=== PATIENT | male | born 1955 | race Caucasian/White ===

== ENCOUNTER 2020-11-27 21:43 | Emergency (ER) | payer MEDICARE, SELFPAY ==
[2020-11-27 22:33] LABS: #Basophils 0.1 10x3/uL (0.0-0.2); #Eosinphils 0.2 10x3/uL (0.0-0.5); #Monocytes 0.7 10x3/uL (0.0-1.1); #Neutrophils 4.5 10x3/uL (1.5-8.4); %Eosinophils 3.2 % (0.0-6.0); %Lymphocytes 20.2 % (18.0-47.0); %Monocytes 9.5 % (0.0-10.0); Hemoglobin 10.5 g/dL (13.5-17.5); Mean Corpuscular HGB CONC 30.8 g/dL (32.0-36.0); Mean Corpuscular Hemoglobin 28.5 pg (27.0-33.0); Mean Corpuscular Volume 92.7 fl (81.2-95.1); Mean Platelet Volume 11.3 fl (7.4-10.4); Platelet Count 177 10x3/uL (150-450); RBC Distribution Width 16.1 % (11.5-14.5); Red Blood Cell (RBC) Count 3.68 10x6/uL (4.32-5.72); White Blood Cell (WBC) Count 6.8 10x3/uL (3.5-10.5)
[2020-11-27 22:48] LABS: ALT (SGPT) 7 U/L (8-55); AST (SGOT) 32 U/L (5-34); Albumin 4.4 g/dL (3.4-4.8); Alkaline Phosphatase 95 U/L (40-110); Anion Gap 17 mmol/L (10-20); BUN (Urea Nitrogen) 26 mg/dL (8.4-25.7); Calc. Creatinine Clearance 0 mL/min (70-130); Carbon Dioxide 27 mmol/L (23-31); Chloride 100 mmol/L (98-107); Globulin 3.1 g/dL (2.4-3.5); Glucose 121 mg/dL (80-115); Potassium 4.2 mmol/L (3.5-5.1); Protein, Total 7.5 g/dL (5.8-8.1); Sodium 140 mmol/L (136-145)
== END 2020-11-28 00:23 | disposition home or self-care (01) ==
LOC: CSHERS 21:43
DX: R06.00 Dyspnea, unspecified (principal); I11.0 Hypertensive heart disease with heart failure; I50.9 Heart failure, unspecified; E11.9 Type 2 diabetes mellitus without complications; I25.10 Atherosclerotic heart disease of native coronary artery without angina pectoris; Z79.01 Long term (current) use of anticoagulants; Z79.4 Long term (current) use of insulin; Z79.899 Other long term (current) drug therapy
CPT/HCPCS: 71045; 80053; 83880; 84484; 85025; 93005

== ENCOUNTER 2020-12-05 15:18 | Inpatient (IN) | payer MEDICARE ==
[2020-12-05 15:45] LABS: #Basophils 0.1 10x3/uL (0.0-0.2); #Eosinphils 0.2 10x3/uL (0.0-0.5); #Monocytes 0.5 10x3/uL (0.0-1.1); #Neutrophils 3.5 10x3/uL (1.5-8.4); %Basophils 0.9 % (0.0-2.0); %Eosinophils 3.7 % (0.0-6.0); %Lymphocytes 22.2 % (18.0-47.0); %Monocytes 9.5 % (0.0-10.0); %Neutrophils 63.3 % (40.0-75.0); Hemoglobin 9.5 g/dL (13.5-17.5); Mean Corpuscular HGB CONC 30.3 g/dL (32.0-36.0); Mean Corpuscular Hemoglobin 28.2 pg (27.0-33.0); Mean Corpuscular Volume 93.2 fl (81.2-95.1); Mean Platelet Volume 11.6 fl (7.4-10.4); Platelet Count 174 10x3/uL (150-450); RBC Distribution Width 16.4 % (11.5-14.5); Red Blood Cell (RBC) Count 3.37 10x6/uL (4.32-5.72); White Blood Cell (WBC) Count 5.5 10x3/uL (3.5-10.5)
[2020-12-05 15:57] LABS: ALT (SGPT) 7 U/L (8-55); AST (SGOT) 18 U/L (5-34); Albumin 4.1 g/dL (3.4-4.8); Alkaline Phosphatase 86 U/L (40-110); Anion Gap 14 mmol/L (10-20); BUN (Urea Nitrogen) 26 mg/dL (8.4-25.7); Bilirubin, Total 0.9 mg/dL (0.2-1.2); Calc. Creatinine Clearance 0 mL/min (70-130); Calcium 8.8 mg/dL (7.8-10.44); Carbon Dioxide 31 mmol/L (23-31); Chloride 103 mmol/L (98-107); Glucose 92 mg/dL (80-115); Potassium 4.3 mmol/L (3.5-5.1); Protein, Total 7.1 g/dL (5.8-8.1); Sodium 144 mmol/L (136-145)
[2020-12-05 16:03] LABS: INR-International Normal Ratio 2.4; PTT 33.7 sec (22.0-33.0); Prothrombin Time 25.8 sec (9.5-12.1)
[2020-12-05 16:18] LABS: CKMB 1.7 ng/mL (0-6.6)
[2020-12-05] MEDS ORDERED: Furosemide 40 MG/4 ML VIAL ONE (16:59)
[2020-12-05] MEDS ORDERED: Ondansetron PF 4 MG/2 ML Vial IVP PRN (17:28)
[2020-12-05] MEDS ORDERED: HYDROcodone/Acetaminophen 5/325 mg Tablet PO PRN (17:28)
[2020-12-05] MEDS ORDERED: Bisacodyl 5 MG TAB PO PRN (17:28)
[2020-12-05] MEDS ORDERED: Acetaminophen 325 MG TAB PO PRN (17:28)
[2020-12-05] MEDS ORDERED: Calcium Carbonate 500 MG ChewTAB PO PRN (17:28)
[2020-12-05] MEDS ORDERED: Warfarin Sodium 5 MG TAB PO SCH (23:59)
[2020-12-06 06:16] LABS: Anion Gap 15 mmol/L (10-20); BUN (Urea Nitrogen) 26 mg/dL (8.4-25.7); Calc. Creatinine Clearance 67 mL/min (70-130); Calcium 9.1 mg/dL (7.8-10.44); Carbon Dioxide 31 mmol/L (23-31); Chloride 103 mmol/L (98-107); Glucose 135 mg/dL (80-115); Magnesium 2.1 mg/dL (1.6-2.6); Potassium 4.5 mmol/L (3.5-5.1); Sodium 144 mmol/L (136-145)
[2020-12-06 06:51] LABS: INR-International Normal Ratio 2.3; Prothrombin Time 24.2 sec (9.5-12.1)
[2020-12-06] MEDS: Furosemide 40 MG/4 ML VIAL SLOW IVP SCH ×2 (06:54→12:43)
[2020-12-06 07:30] LABS: #Basophils 0.1 10x3/uL (0.0-0.2); #Eosinphils 0.2 10x3/uL (0.0-0.5); #Monocytes 0.6 10x3/uL (0.0-1.1); #Neutrophils 4.8 10x3/uL (1.5-8.4); %Basophils 1.2 % (0.0-2.0); %Eosinophils 2.6 % (0.0-6.0); %Lymphocytes 17.4 % (18.0-47.0); %Monocytes 8.9 % (0.0-10.0); %Neutrophils 69.8 % (40.0-75.0); Hemoglobin 9.6 g/dL (13.5-17.5); Mean Corpuscular HGB CONC 30.5 g/dL (32.0-36.0); Mean Corpuscular Hemoglobin 28.9 pg (27.0-33.0); Mean Corpuscular Volume 94.9 fl (81.2-95.1); Mean Platelet Volume 12.3 fl (7.4-10.4); Platelet Count 179 10x3/uL (150-450); RBC Distribution Width 16.2 % (11.5-14.5); Red Blood Cell (RBC) Count 3.32 10x6/uL (4.32-5.72); White Blood Cell (WBC) Count 6.8 10x3/uL (3.5-10.5)
[2020-12-06] MEDS ORDERED: Enoxaparin Sodium 40 MG/0.4 ML SYRINGE SC SCH (09:00)
[2020-12-06] MEDS ORDERED: Gabapentin 300 MG CAP PO PRN (15:00)
[2020-12-06] MEDS ORDERED: Furosemide 100 MG/10 ML VIAL SLOW IVP SCH (15:45)
[2020-12-06 15:55] LABS: SARS-CoV-2 PCR by NAA Not Detected (NotDetected)
[2020-12-06] MEDS ORDERED: Carvedilol 6.25 MG TAB PO SCH ×2 (17:00→21:00)
[2020-12-06] MEDS: Potassium Chloride 20 MEQ TAB PO SCH (19:04)
[2020-12-06] MEDS: Carvedilol 12.5 MG TAB PO SCH (19:04)
[2020-12-07] MEDS: Furosemide 100 MG/10 ML VIAL SLOW IVP SCH ×2 (05:57→14:26)
[2020-12-07 07:00] LABS: Anion Gap 16 mmol/L (10-20); BUN (Urea Nitrogen) 24 mg/dL (8.4-25.7); Calc. Creatinine Clearance 74 mL/min (70-130); Calcium 9.3 mg/dL (7.8-10.44); Carbon Dioxide 31 mmol/L (23-31); Chloride 101 mmol/L (98-107); Glucose 135 mg/dL (80-115); Potassium 4.6 mmol/L (3.5-5.1); Sodium 143 mmol/L (136-145)
[2020-12-07 07:05] LABS: Prothrombin Time 21.8 sec (9.5-12.1)
[2020-12-07] MEDS ORDERED: Potassium Chloride 20 MEQ TAB PO SCH (08:00)
[2020-12-07] MEDS: Carvedilol 12.5 MG TAB PO SCH ×2 (11:23→18:10)
[2020-12-07] MEDS: Atorvastatin Calcium 40 MG TAB PO SCH (11:24)
[2020-12-07] MEDS: Potassium Chloride 20 MEQ TAB PO SCH ×2 (11:24→18:09)
[2020-12-07] MEDS: Spironolactone 25 MG TAB PO SCH (11:24)
[2020-12-07] MEDS: Losartan Potassium 50 MG TAB PO SCH (11:24)
[2020-12-07] MEDS: Warfarin Sodium 5 MG TAB PO SCH (18:10)
[2020-12-08] MEDS: Furosemide 100 MG/10 ML VIAL SLOW IVP SCH (06:27)
[2020-12-08 06:32] LABS: INR-International Normal Ratio 1.7; Prothrombin Time 18.8 sec (9.5-12.1)
[2020-12-08 06:39] LABS: Anion Gap 15 mmol/L (10-20); BUN (Urea Nitrogen) 24 mg/dL (8.4-25.7); Calc. Creatinine Clearance 77 mL/min (70-130); Carbon Dioxide 32 mmol/L (23-31); Chloride 101 mmol/L (98-107); Glucose 118 mg/dL (80-115); Potassium 4.2 mmol/L (3.5-5.1); Sodium 144 mmol/L (136-145)
[2020-12-08] MEDS: Carvedilol 12.5 MG TAB PO SCH ×2 (08:38→17:10)
[2020-12-08] MEDS: Losartan Potassium 50 MG TAB PO SCH (08:43)
[2020-12-08] MEDS: Potassium Chloride 20 MEQ TAB PO SCH ×2 (08:44→17:10)
[2020-12-08] MEDS: Spironolactone 25 MG TAB PO SCH (08:44)
[2020-12-08] MEDS: Atorvastatin Calcium 40 MG TAB PO SCH (08:44)
[2020-12-08] MEDS: Furosemide 40 MG TAB PO SCH (14:58)
[2020-12-08] MEDS: Warfarin Sodium 5 MG TAB PO SCH (17:10)
[2020-12-08] MEDS: Albuterol Sulfate 2.5 mg/3 ml Neb NEB PRN (21:45)
[2020-12-09] MEDS: Albuterol Sulfate 2.5 mg/3 ml Neb NEB PRN (03:10)
[2020-12-09 05:19] LABS: #Basophils 0.1 10x3/uL (0.0-0.2); #Eosinphils 0.2 10x3/uL (0.0-0.5); #Monocytes 0.5 10x3/uL (0.0-1.1); #Neutrophils 3.4 10x3/uL (1.5-8.4); %Basophils 1.2 % (0.0-2.0); %Eosinophils 3.7 % (0.0-6.0); %Lymphocytes 19.4 % (18.0-47.0); %Neutrophils 65.5 % (40.0-75.0); Mean Corpuscular HGB CONC 30.5 g/dL (32.0-36.0); Mean Corpuscular Hemoglobin 28.8 pg (27.0-33.0); Mean Corpuscular Volume 94.6 fl (81.2-95.1); Mean Platelet Volume 12.1 fl (7.4-10.4); Platelet Count 161 10x3/uL (150-450); RBC Distribution Width 15.8 % (11.5-14.5); Red Blood Cell (RBC) Count 3.12 10x6/uL (4.32-5.72); White Blood Cell (WBC) Count 5.1 10x3/uL (3.5-10.5)
[2020-12-09 05:31] VITALS: BMI 28.3
[2020-12-09 05:31] LABS: INR-International Normal Ratio 1.8; Prothrombin Time 19.6 sec (9.5-12.1)
[2020-12-09 05:36] LABS: Anion Gap 12 mmol/L (10-20); BUN (Urea Nitrogen) 24 mg/dL (8.4-25.7); Calc. Creatinine Clearance 75 mL/min (70-130); Carbon Dioxide 34 mmol/L (23-31); Chloride 99 mmol/L (98-107); Glucose 111 mg/dL (80-115); Potassium 4.1 mmol/L (3.5-5.1); Sodium 141 mmol/L (136-145)
[2020-12-09] MEDS: Furosemide 40 MG TAB PO SCH ×3 (08:54→14:13)
[2020-12-09] MEDS: Carvedilol 12.5 MG TAB PO SCH ×2 (08:54→18:02)
[2020-12-09] MEDS: Potassium Chloride 20 MEQ TAB PO SCH ×2 (08:55→18:01)
[2020-12-09] MEDS: Losartan Potassium 50 MG TAB PO SCH (08:55)
[2020-12-09] MEDS: Atorvastatin Calcium 40 MG TAB PO SCH (08:56)
[2020-12-09] MEDS: Spironolactone 25 MG TAB PO SCH (08:56)
[2020-12-09] MEDS: Warfarin Sodium 5 MG TAB PO SCH (18:02)
[2020-12-09] MEDS ORDERED: Dextrose 5% in Water 1,000 ML IV PRN (18:26)
[2020-12-09] MEDS ORDERED: Dextrose 50% Abboject 50 ML SYRINGE SLOW IVP PRN (18:26)
[2020-12-09] MEDS: HumaLOG 300 UNITS/3 ML VIAL SC PRN (21:08)
[2020-12-10 06:43] LABS: INR-International Normal Ratio 1.9; Prothrombin Time 19.9 sec (9.5-12.1)
[2020-12-10 06:49] LABS: Anion Gap 13 mmol/L (10-20); BUN (Urea Nitrogen) 21 mg/dL (8.4-25.7); Calc. Creatinine Clearance 73 mL/min (70-130); Calcium 9.1 mg/dL (7.8-10.44); Carbon Dioxide 35 mmol/L (23-31); Chloride 101 mmol/L (98-107); Glucose 127 mg/dL (80-115); Potassium 4.5 mmol/L (3.5-5.1); Sodium 144 mmol/L (136-145)
[2020-12-10 07:18] LABS: #Basophils 0.1 10x3/uL (0.0-0.2); #Eosinphils 0.2 10x3/uL (0.0-0.5); #Monocytes 0.6 10x3/uL (0.0-1.1); #Neutrophils 3.3 10x3/uL (1.5-8.4); %Basophils 1.3 % (0.0-2.0); %Lymphocytes 21.3 % (18.0-47.0); %Monocytes 11.1 % (0.0-10.0); %Neutrophils 61.9 % (40.0-75.0); Hemoglobin 9.7 g/dL (13.5-17.5); Mean Corpuscular HGB CONC 30.8 g/dL (32.0-36.0); Mean Corpuscular Hemoglobin 28.8 pg (27.0-33.0); Mean Corpuscular Volume 93.5 fl (81.2-95.1); Mean Platelet Volume 11.7 fl (7.4-10.4); Platelet Count 163 10x3/uL (150-450); RBC Distribution Width 15.9 % (11.5-14.5); Red Blood Cell (RBC) Count 3.37 10x6/uL (4.32-5.72); White Blood Cell (WBC) Count 5.3 10x3/uL (3.5-10.5)
[2020-12-10] MEDS: Furosemide 40 MG TAB PO SCH ×2 (08:21→14:29)
[2020-12-10] MEDS: Losartan Potassium 50 MG TAB PO SCH (08:21)
[2020-12-10] MEDS: Spironolactone 25 MG TAB PO SCH (08:21)
[2020-12-10] MEDS: Carvedilol 12.5 MG TAB PO SCH ×2 (08:21→16:49)
[2020-12-10] MEDS: Potassium Chloride 20 MEQ TAB PO SCH ×2 (08:21→17:06)
[2020-12-10] MEDS: Atorvastatin Calcium 40 MG TAB PO SCH (08:21)
[2020-12-10] MEDS: HumaLOG 300 UNITS/3 ML VIAL SC PRN ×2 (11:49→21:07)
[2020-12-10] MEDS: Warfarin Sodium 5 MG TAB PO SCH (17:05)
[2020-12-11 06:34] LABS: #Basophils 0.1 10x3/uL (0.0-0.2); #Eosinphils 0.2 10x3/uL (0.0-0.5); #Monocytes 0.7 10x3/uL (0.0-1.1); #Neutrophils 3.6 10x3/uL (1.5-8.4); %Basophils 0.9 % (0.0-2.0); %Eosinophils 4.2 % (0.0-6.0); %Lymphocytes 19.9 % (18.0-47.0); %Monocytes 11.4 % (0.0-10.0); %Neutrophils 63.4 % (40.0-75.0); Hemoglobin 9.6 g/dL (13.5-17.5); Mean Corpuscular HGB CONC 30.6 g/dL (32.0-36.0); Mean Corpuscular Hemoglobin 28.9 pg (27.0-33.0); Mean Corpuscular Volume 94.6 fl (81.2-95.1); Mean Platelet Volume 11.9 fl (7.4-10.4); Platelet Count 176 10x3/uL (150-450); RBC Distribution Width 15.7 % (11.5-14.5); Red Blood Cell (RBC) Count 3.32 10x6/uL (4.32-5.72); White Blood Cell (WBC) Count 5.7 10x3/uL (3.5-10.5)
[2020-12-11 06:49] LABS: INR-International Normal Ratio 1.7; Prothrombin Time 18.6 sec (9.5-12.1)
[2020-12-11 07:39] LABS: Anion Gap 15 mmol/L (10-20); BUN (Urea Nitrogen) 21 mg/dL (8.4-25.7); Calc. Creatinine Clearance 81 mL/min (70-130); Carbon Dioxide 30 mmol/L (23-31); Chloride 102 mmol/L (98-107); Glucose 128 mg/dL (80-115); Potassium 4.4 mmol/L (3.5-5.1); Sodium 143 mmol/L (136-145)
[2020-12-11] MEDS: Losartan Potassium 50 MG TAB PO SCH (08:25)
[2020-12-11] MEDS: Atorvastatin Calcium 40 MG TAB PO SCH (08:25)
[2020-12-11] MEDS: Carvedilol 12.5 MG TAB PO SCH (08:25)
[2020-12-11] MEDS: Furosemide 40 MG TAB PO SCH ×2 (08:25→16:12)
[2020-12-11] MEDS: Spironolactone 25 MG TAB PO SCH (08:25)
[2020-12-11] MEDS: Potassium Chloride 20 MEQ TAB PO SCH (08:25)
[2020-12-11 16:31] VITALS: BP 113/60; TEMP 98.4
== END 2020-12-11 17:04 | disposition home or self-care (01) | DRG 291 ==
LOC: CSHERS 15:18 → CSHTELE 19:00
PROVIDERS: ADMIT Hospitalist; ATTEND Family Medicine
DX: I13.0 Hypertensive heart and chronic kidney disease with heart failure and stage 1 through stage 4 chronic kidney disease, or unspecified chronic kidney disease (principal); J96.01 Acute respiratory failure with hypoxia; I50.43 Acute on chronic combined systolic (congestive) and diastolic (congestive) heart failure; J44.1 Chronic obstructive pulmonary disease with (acute) exacerbation; E11.22 Type 2 diabetes mellitus with diabetic chronic kidney disease; Z20.822 Contact with and (suspected) exposure to COVID-19; F17.210 Nicotine dependence, cigarettes, uncomplicated; E78.5 Hyperlipidemia, unspecified; I25.10 Atherosclerotic heart disease of native coronary artery without angina pectoris; I25.5 Ischemic cardiomyopathy; N18.30 Chronic kidney disease, stage 3 unspecified; Z95.810 Presence of automatic (implantable) cardiac defibrillator; Z95.1 Presence of aortocoronary bypass graft; Z95.5 Presence of coronary angioplasty implant and graft; Z79.01 Long term (current) use of anticoagulants; Z95.2 Presence of prosthetic heart valve; Z79.4 Long term (current) use of insulin; Z79.899 Other long term (current) drug therapy
CPT/HCPCS: 36415; 36416; 71045; 80048; 80053; 82553; 83735; 83880; 84484; 85025; 85610; 85730; 87635; 93005; 93306; 94640; 94760; 96374; J1815; J1940; J7611; J7620; U0003; U0005

== ENCOUNTER 2021-07-21 14:59 | Inpatient (IN) | payer MEDICARE ==
[2021-07-21 15:45] LABS: #Basophils 0.1 10x3/uL (0.0-0.2); #Monocytes 0.5 10x3/uL (0.0-1.1); #Neutrophils 5.5 10x3/uL (1.5-8.4); %Basophils 1.1 % (0.0-2.0); %Eosinophils 0.5 % (0.0-6.0); %Lymphocytes 23.6 % (18.0-47.0); %Monocytes 5.6 % (0.0-10.0); %Neutrophils 68.9 % (40.0-75.0); Hemoglobin 7.8 g/dL (13.5-17.5); Mean Corpuscular HGB CONC 29.4 g/dL (32.0-36.0); Mean Corpuscular Hemoglobin 24.9 pg (27.0-33.0); Mean Corpuscular Volume 84.7 fl (81.2-95.1); Mean Platelet Volume 9.8 fl (7.4-10.4); Platelet Count 384 10x3/uL (150-450); RBC Distribution Width 15.9 % (11.5-14.5); Red Blood Cell (RBC) Count 3.13 10x6/uL (4.32-5.72)
[2021-07-21 16:19] LABS: CKMB 1.3 ng/mL (0-6.6)
[2021-07-21 16:31] LABS: ALT (SGPT) 7 U/L (8-55); AST (SGOT) 14 U/L (5-34); Albumin 4.2 g/dL (3.4-4.8); Alkaline Phosphatase 67 U/L (40-110); Anion Gap 19 mmol/L (10-20); BUN (Urea Nitrogen) 85 mg/dL (8.4-25.7); Bilirubin, Total 0.7 mg/dL (0.2-1.2); Calc. Creatinine Clearance 0 mL/min (70-130); Calcium 9.3 mg/dL (7.8-10.44); Carbon Dioxide 26 mmol/L (23-31); Chloride 96 mmol/L (98-107); Globulin 3.8 g/dL (2.4-3.5); Glucose 133 mg/dL (80-115); Potassium 5.2 mmol/L (3.5-5.1); Sodium 136 mmol/L (136-145)
[2021-07-21 16:58] LABS: Anisocytosis SLIGHT = 6-15 cells (100X) (0-5/hpf); Hypochromia SLIGHT = 6-15 cells (100X) (0-5/hpf); Poikilocytosis SLIGHT = 6-15 cells (100X) (0-5/hpf)
[2021-07-21 16:59] LABS: Elliptocytes SLIGHT = 2-5 cells (100X) (0-1/hpf); Ovalocytes SLIGHT = 2-5 cells (100X) (0-1/hpf); Platelet Morphology Comment Appears Adequate; Stomatocytes SLIGHT = 2-5 cells (100X) (0-1/hpf)
[2021-07-21] MEDS ORDERED: Ondansetron PF 4 MG/2 ML Vial IVP PRN (17:38)
[2021-07-21] MEDS ORDERED: Acetaminophen 325 MG TAB PO PRN (17:38)
[2021-07-21] MEDS ORDERED: Dextrose 50% Abboject 50 ML SYRINGE SLOW IVP PRN (17:44)
[2021-07-21] MEDS ORDERED: Dextrose 5% in Water 1,000 ML IV PRN (17:44)
[2021-07-21 18:17] LABS: Troponin I 0.054 ng/mL (< 0.028)
[2021-07-21 20:24] VITALS: BMI 32.3
[2021-07-21 21:18] LABS: Troponin I 0.045 ng/mL (< 0.028)
[2021-07-21] MEDS ORDERED: Simvastatin 10 MG TAB PO SCH (23:00)
[2021-07-21] MEDS ORDERED: Magnesium Oxide 400 MG TAB PO SCH (23:00)
[2021-07-21] MEDS ORDERED: Glimepiride 4 MG TAB PO SCH (23:00)
[2021-07-21] MEDS: Lidocaine 5% Patch TD SCH (23:11)
[2021-07-22 05:22] LABS: #Basophils 0.1 10x3/uL (0.0-0.2); #Eosinphils 0.2 10x3/uL (0.0-0.5); #Monocytes 0.6 10x3/uL (0.0-1.1); #Neutrophils 3.3 10x3/uL (1.5-8.4); %Basophils 1.2 % (0.0-2.0); %Eosinophils 3.2 % (0.0-6.0); %Lymphocytes 31.3 % (18.0-47.0); %Monocytes 9.3 % (0.0-10.0); %Neutrophils 54.8 % (40.0-75.0); Hemoglobin 7.7 g/dL (13.5-17.5); Mean Corpuscular HGB CONC 30.2 g/dL (32.0-36.0); Mean Corpuscular Hemoglobin 25.6 pg (27.0-33.0); Mean Corpuscular Volume 84.7 fl (81.2-95.1); Mean Platelet Volume 10.2 fl (7.4-10.4); Platelet Count 371 10x3/uL (150-450); Red Blood Cell (RBC) Count 3.01 10x6/uL (4.32-5.72); White Blood Cell (WBC) Count 5.9 10x3/uL (3.5-10.5)
[2021-07-22 05:29] LABS: INR-International Normal Ratio 2.2
[2021-07-22 05:35] LABS: Anion Gap 17 mmol/L (10-20); BUN (Urea Nitrogen) 84 mg/dL (8.4-25.7); Calc. Creatinine Clearance 24 mL/min (70-130); Calcium 9.1 mg/dL (7.8-10.44); Carbon Dioxide 28 mmol/L (23-31); Cardiac Risk 4.2 (Less than 4.5); Chloride 99 mmol/L (98-107); Cholesterol 118 mg/dl (< 200 Desired); Glucose 130 mg/dL (80-115); HDL Cholesterol 28 mg/dL (>60 Neg Risk); LDL Cholesterol, Calculated 60 mg/dL; Potassium 4.2 mmol/L (3.5-5.1); Sodium 140 mmol/L (136-145); Triglycerides 152 mg/dL (Less than 150)
[2021-07-22] MEDS ORDERED: predniSONE 20 MG TAB PO SCH (09:00)
[2021-07-22] MEDS ORDERED: Gabapentin 300 MG CAP PO SCH (09:00)
[2021-07-22 09:07] LABS: Potassium, Urine 19.1 mmol/L
[2021-07-22] MEDS: predniSONE 20 MG TAB PO SCH (09:24)
[2021-07-22] MEDS: Atorvastatin Calcium 40 MG TAB PO SCH (09:24)
[2021-07-22] MEDS: Lantus 1000 UNITS/10 ML VIAL SC SCH (09:25)
[2021-07-22] MEDS: Lidocaine 5% Patch TD SCH (09:37)
[2021-07-22] MEDS: Transdermal Patch Removal TOP SCH (09:43)
[2021-07-22] MEDS: HumaLOG 300 UNITS/3 ML VIAL SC PRN ×3 (11:31→22:05)
[2021-07-22] MEDS ORDERED: Warfarin Sodium 5 MG TAB PO SCH (17:00)
[2021-07-22] MEDS: Glimepiride 4 MG TAB PO SCH (17:04)
[2021-07-22] MEDS: Carvedilol 3.125 MG TAB PO SCH (22:01)
[2021-07-22] MEDS: Magnesium Oxide 400 MG TAB PO SCH (22:01)
[2021-07-23 05:35] LABS: #Monocytes 0.4 10x3/uL (0.0-1.1); #Neutrophils 6.7 10x3/uL (1.5-8.4); %Basophils 0.1 % (0.0-2.0); %Lymphocytes 13.6 % (18.0-47.0); %Neutrophils 81.1 % (40.0-75.0); Hemoglobin 7.1 g/dL (13.5-17.5); Mean Corpuscular HGB CONC 30.1 g/dL (32.0-36.0); Mean Corpuscular Hemoglobin 25.5 pg (27.0-33.0); Mean Corpuscular Volume 84.9 fl (81.2-95.1); Mean Platelet Volume 11.1 fl (7.4-10.4); Platelet Count 346 10x3/uL (150-450); Red Blood Cell (RBC) Count 2.78 10x6/uL (4.32-5.72); White Blood Cell (WBC) Count 8.2 10x3/uL (3.5-10.5)
[2021-07-23 05:36] LABS: INR-International Normal Ratio 1.7; Prothrombin Time 18.3 sec (9.5-12.1)
[2021-07-23 05:45] LABS: Anion Gap 19 mmol/L (10-20); BUN (Urea Nitrogen) 79 mg/dL (8.4-25.7); Calc. Creatinine Clearance 29 mL/min (70-130); Calcium 9.1 mg/dL (7.8-10.44); Carbon Dioxide 26 mmol/L (23-31); Chloride 102 mmol/L (98-107); Glucose 271 mg/dL (80-115); Potassium 4.6 mmol/L (3.5-5.1); Sodium 142 mmol/L (136-145)
[2021-07-23] MEDS: HumaLOG 300 UNITS/3 ML VIAL SC PRN ×2 (07:09→11:52)
[2021-07-23] MEDS: Glimepiride 4 MG TAB PO SCH ×2 (08:41→17:24)
[2021-07-23] MEDS: Transdermal Patch Removal TOP SCH (08:43)
[2021-07-23] MEDS: predniSONE 20 MG TAB PO SCH (08:46)
[2021-07-23] MEDS: Carvedilol 3.125 MG TAB PO SCH ×2 (08:46→23:22)
[2021-07-23] MEDS: Atorvastatin Calcium 40 MG TAB PO SCH (08:46)
[2021-07-23] MEDS: Lantus 1000 UNITS/10 ML VIAL SC SCH (08:47)
[2021-07-23] MEDS ORDERED: Furosemide 20 MG/2 ML VIAL SLOW IVP SCH ×2 (16:00→21:00)
[2021-07-23] MEDS ORDERED: Warfarin Sodium 7.5 MG TAB PO SCH (17:00)
[2021-07-23] MEDS: Lidocaine 5% Patch TD SCH (23:21)
[2021-07-23] MEDS: Magnesium Oxide 400 MG TAB PO SCH (23:24)
[2021-07-23 23:31] VITALS: BP 120/69; TEMP 98.5
== END 2021-07-23 21:00 | disposition home or self-care (01) | DRG 281 ==
LOC: CSHERS 14:59 → INTOOBSV 18:46 → CSHTELE 18:46 → OBSVTOIN 07-23 14:31
PROVIDERS: ADMIT Family Medicine; ATTEND Family Medicine
PROC: 30233N1 Transfusion of Nonautologous Red Blood Cells into Peripheral Vein, Percutaneous Approach (ICD-10-PCS; principal; 2021-07-23)
DX: I13.0 Hypertensive heart and chronic kidney disease with heart failure and stage 1 through stage 4 chronic kidney disease, or unspecified chronic kidney disease (principal); I21.A1 Myocardial infarction type 2; N17.9 Acute kidney failure, unspecified; I50.42 Chronic combined systolic (congestive) and diastolic (congestive) heart failure; N18.4 Chronic kidney disease, stage 4 (severe); R55 Syncope and collapse; Z20.822 Contact with and (suspected) exposure to COVID-19; I25.10 Atherosclerotic heart disease of native coronary artery without angina pectoris; F17.210 Nicotine dependence, cigarettes, uncomplicated; E86.1 Hypovolemia; E87.6 Hypokalemia; I95.89 Other hypotension; I42.9 Cardiomyopathy, unspecified; I48.0 Paroxysmal atrial fibrillation; E78.2 Mixed hyperlipidemia; E16.2 Hypoglycemia, unspecified; J44.9 Chronic obstructive pulmonary disease, unspecified; D63.1 Anemia in chronic kidney disease; M10.9 Gout, unspecified; Z95.810 Presence of automatic (implantable) cardiac defibrillator; Z95.1 Presence of aortocoronary bypass graft; Z95.2 Presence of prosthetic heart valve; Z79.01 Long term (current) use of anticoagulants; Z79.899 Other long term (current) drug therapy; Z79.84 Long term (current) use of oral hypoglycemic drugs; Z79.4 Long term (current) use of insulin; Z90.49 Acquired absence of other specified parts of digestive tract
CPT/HCPCS: 36415; 36416; 36430; 76770; 80048; 80053; 80061; 82436; 82553; 83880; 83930; 83935; 84133; 84300; 84484; 84550; 85025; 85610; 86850; 86900; 86901; 93005; G0378; J1815; J1940; J7512; P9016

== ENCOUNTER 2021-08-22 01:48 | Inpatient (IN) | payer MEDICARE ==
[2021-08-22 02:36] LABS: ALT (SGPT) Less than 6 U/L (8-55); AST (SGOT) 15 U/L (5-34); Albumin 4.2 g/dL (3.4-4.8); Alkaline Phosphatase 91 U/L (40-110); Anion Gap 28 mmol/L (10-20); BUN (Urea Nitrogen) 107 mg/dL (8.4-25.7); Bilirubin, Total 0.6 mg/dL (0.2-1.2); CK (CPK) 111 U/L (30-200); Calc. Creatinine Clearance 0 mL/min (70-130); Calcium 8.5 mg/dL (7.8-10.44); Carbon Dioxide 21 mmol/L (23-31); Chloride 89 mmol/L (98-107); Globulin 3.4 g/dL (2.4-3.5); Glucose 191 mg/dL (80-115); Magnesium 2.2 mg/dL (1.6-2.6); Potassium 3.7 mmol/L (3.5-5.1); Protein, Total 7.6 g/dL (5.8-8.1); Sodium 134 mmol/L (136-145)
[2021-08-22 02:46] LABS: PTT 42.1 sec (22.0-33.0); Prothrombin Time 41.1 sec (9.5-12.1)
[2021-08-22 02:53] LABS: Anisocytosis MODERATE=16-30 cells (100X) (0-5/hpf); Hypochromia MODERATE=16-30 cells (100X) (0-5/hpf); Macrocytosis SLIGHT = 6-15 cells (100X) (0-5/hpf); Microcytosis SLIGHT = 6-15 cells (100X) (0-5/hpf); Ovalocytes MODERATE= 6-15 cells (100X) (0-1/hpf); Poikilocytosis SLIGHT = 6-15 cells (100X) (0-5/hpf)
[2021-08-22 02:54] LABS: Polychromasia SLIGHT = 2-3 cells (100X) (0-2/hpf)
[2021-08-22 02:56] LABS: Large Platelets SLIGHT; Platelet Morphology Comment Appears Increased
[2021-08-22 02:57] LABS: #Monocytes 0.1 10x3/uL (0.0-1.1); #Neutrophils 5.5 10x3/uL (1.5-8.4); %Lymphocytes 7.9 % (18.0-47.0); %Monocytes 0.8 % (0.0-10.0); %Neutrophils 90.8 % (40.0-75.0); Mean Corpuscular HGB CONC 29.2 g/dL (32.0-36.0); Mean Corpuscular Hemoglobin 23.8 pg (27.0-33.0); Mean Corpuscular Volume 81.6 fl (81.2-95.1); Mean Platelet Volume 10.7 fl (7.4-10.4); Platelet Count 443 10x3/uL (150-450); Red Blood Cell (RBC) Count 2.94 10x6/uL (4.32-5.72); White Blood Cell (WBC) Count 6.1 10x3/uL (3.5-10.5)
[2021-08-22 02:58] LABS: CKMB 2.3 ng/mL (0-6.6)
[2021-08-22 04:58] LABS: SARS-CoV-2 NAA Rapid Test Not Detected (NotDetected)
[2021-08-22] MEDS ORDERED: Senokot S 8.6-50 MG TAB PO PRN (05:47)
[2021-08-22] MEDS ORDERED: Dextrose 5% in Water 1,000 ML IV PRN (05:57)
[2021-08-22] MEDS ORDERED: Dextrose 50% Abboject 50 ML SYRINGE SLOW IVP PRN (05:57)
[2021-08-22 07:19] LABS: Iron 24 ug/dL (65-175); Iron Binding Capacity, Total 410 mcg/dL (261-462); Magnesium 2.1 mg/dL (1.6-2.6)
[2021-08-22 07:25] LABS: Troponin I 0.225 ng/mL (< 0.028)
[2021-08-22] MEDS ORDERED: Furosemide 100 MG/10 ML VIAL SLOW IVP SCH (08:00)
[2021-08-22 08:29] LABS: Prothrombin Time 42.7 sec (9.5-12.1)
[2021-08-22 08:31] LABS: INR-International Normal Ratio 4.1
[2021-08-22 08:35] LABS: Ferritin 32.86 ng/mL (22-322)
[2021-08-22 09:32] LABS: Troponin I 0.184 ng/mL (< 0.028)
[2021-08-22] MEDS ORDERED: Carvedilol 3.125 MG TAB ONE (09:34)
[2021-08-22] MEDS ORDERED: Gabapentin 300 MG CAP ONE (09:34)
[2021-08-22] MEDS ORDERED: Furosemide 20 MG/2 ML VIAL ONE (09:35)
[2021-08-22] MEDS: Carvedilol 6.25 MG TAB PO SCH ×2 (09:57→18:07)
[2021-08-22] MEDS: Allopurinol 100 MG TAB PO SCH (09:58)
[2021-08-22] MEDS ORDERED: IRON SUCROSE COMPLEX 100 MG/5 ML SLOW IVP SCH (14:45)
[2021-08-22 15:53] VITALS: BMI 27.8
[2021-08-22] MEDS ORDERED: Iron, Sodium Ferric Gluconate 125 MG in Sodium Chloride 0.9% 100 ML IVPB SCH (16:00)
[2021-08-22] MEDS ORDERED: Warfarin Sodium 7.5 MG TAB PO SCH (17:00)
[2021-08-22] MEDS: Gabapentin 100 MG CAP PO SCH ×2 (18:07→23:50)
[2021-08-22] MEDS: Atorvastatin Calcium 40 MG TAB PO SCH (23:50)
[2021-08-23 05:56] LABS: ALT (SGPT) 6 U/L (8-55); AST (SGOT) 15 U/L (5-34); Albumin 3.7 g/dL (3.4-4.8); Alkaline Phosphatase 76 U/L (40-110); Anion Gap 20 mmol/L (10-20); Bilirubin, Total 0.7 mg/dL (0.2-1.2); Calc. Creatinine Clearance 19 mL/min (70-130); Calcium 7.8 mg/dL (7.8-10.44); Carbon Dioxide 25 mmol/L (23-31); Chloride 92 mmol/L (98-107); Globulin 2.9 g/dL (2.4-3.5); Glucose 193 mg/dL (80-115); Magnesium 2.3 mg/dL (1.6-2.6); Potassium 4.3 mmol/L (3.5-5.1); Protein, Total 6.6 g/dL (5.8-8.1); Sodium 133 mmol/L (136-145)
[2021-08-23 06:06] LABS: BUN (Urea Nitrogen) 122 mg/dL (8.4-25.7)
[2021-08-23 06:13] LABS: #Monocytes 0.5 10x3/uL (0.0-1.1); %Basophils 0.2 % (0.0-2.0); %Lymphocytes 9.5 % (18.0-47.0); %Monocytes 5.7 % (0.0-10.0); %Neutrophils 84.1 % (40.0-75.0); Hemoglobin 7.2 g/dL (13.5-17.5); Mean Corpuscular HGB CONC 31.6 g/dL (32.0-36.0); Mean Corpuscular Hemoglobin 25.1 pg (27.0-33.0); Mean Corpuscular Volume 79.4 fl (81.2-95.1); Mean Platelet Volume 11.2 fl (7.4-10.4); Platelet Count 385 10x3/uL (150-450); RBC Distribution Width 17.1 % (11.5-14.5); Red Blood Cell (RBC) Count 2.87 10x6/uL (4.32-5.72); White Blood Cell (WBC) Count 8.3 10x3/uL (3.5-10.5)
[2021-08-23 06:56] LABS: Prothrombin Time 49.3 sec (9.5-12.1)
[2021-08-23 07:19] LABS: INR-International Normal Ratio 4.8
[2021-08-23] MEDS: Allopurinol 100 MG TAB PO SCH (08:22)
[2021-08-23] MEDS: Gabapentin 100 MG CAP PO SCH ×3 (08:22→21:00)
[2021-08-23] MEDS: HumaLOG 300 UNITS/3 ML VIAL SC PRN ×2 (13:48→18:40)
[2021-08-23] MEDS ORDERED: Warfarin Sodium 5 MG TAB PO SCH ×2 (17:00)
[2021-08-23] MEDS: Pantoprazole 40 MG VIAL IVP SCH (21:00)
[2021-08-23] MEDS: Atorvastatin Calcium 40 MG TAB PO SCH (21:00)
[2021-08-24] MEDS ORDERED: diphenhydrAMINE 25 MG CAP PO SCH (03:30)
[2021-08-24 06:19] LABS: INR-International Normal Ratio 3.4; Prothrombin Time 35.3 sec (9.5-12.1)
[2021-08-24 06:49] LABS: #Basophils 0.1 10x3/uL (0.0-0.2); #Eosinphils 0.1 10x3/uL (0.0-0.5); #Monocytes 0.6 10x3/uL (0.0-1.1); %Basophils 0.7 % (0.0-2.0); %Eosinophils 1.1 % (0.0-6.0); %Lymphocytes 19.9 % (18.0-47.0); %Monocytes 6.3 % (0.0-10.0); %Neutrophils 71.7 % (40.0-75.0); Hemoglobin 8.3 g/dL (13.5-17.5); Mean Corpuscular HGB CONC 31.3 g/dL (32.0-36.0); Mean Corpuscular Hemoglobin 25.3 pg (27.0-33.0); Mean Corpuscular Volume 80.8 fl (81.2-95.1); Mean Platelet Volume 11.3 fl (7.4-10.4); Platelet Count 392 10x3/uL (150-450); RBC Distribution Width 17.1 % (11.5-14.5); Red Blood Cell (RBC) Count 3.28 10x6/uL (4.32-5.72); White Blood Cell (WBC) Count 9.7 10x3/uL (3.5-10.5)
[2021-08-24 07:08] LABS: ALT (SGPT) 8 U/L (8-55); AST (SGOT) 25 U/L (5-34); Albumin 3.8 g/dL (3.4-4.8); Alkaline Phosphatase 81 U/L (40-110); Anion Gap 20 mmol/L (10-20); Bilirubin, Total 0.9 mg/dL (0.2-1.2); Calc. Creatinine Clearance 18 mL/min (70-130); Carbon Dioxide 26 mmol/L (23-31); Chloride 92 mmol/L (98-107); Globulin 2.9 g/dL (2.4-3.5); Potassium 3.8 mmol/L (3.5-5.1); Protein, Total 6.7 g/dL (5.8-8.1); Sodium 134 mmol/L (136-145)
[2021-08-24 07:30] LABS: Glucose 77 mg/dL (80-115)
[2021-08-24 07:54] LABS: BUN (Urea Nitrogen) 124 mg/dL (8.4-25.7)
[2021-08-24] MEDS: Pantoprazole 40 MG VIAL IVP SCH ×2 (10:41→20:08)
[2021-08-24] MEDS: Allopurinol 100 MG TAB PO SCH (10:42)
[2021-08-24] MEDS: Gabapentin 100 MG CAP PO SCH ×3 (10:42→20:08)
[2021-08-24] MEDS ORDERED: Warfarin Sodium 2.5 MG TAB PO SCH (17:00)
[2021-08-24] MEDS: Atorvastatin Calcium 40 MG TAB PO SCH (20:08)
[2021-08-24] MEDS ORDERED: diphenhydrAMINE 25 MG CAP PO PRN (23:48)
[2021-08-25 04:51] LABS: INR-International Normal Ratio 2.2
[2021-08-25 05:02] LABS: ALT (SGPT) 11 U/L (8-55); AST (SGOT) 35 U/L (5-34); Albumin 3.8 g/dL (3.4-4.8); Alkaline Phosphatase 81 U/L (40-110); Anion Gap 19 mmol/L (10-20); Bilirubin, Total 0.7 mg/dL (0.2-1.2); Calc. Creatinine Clearance 17 mL/min (70-130); Calcium 8.2 mg/dL (7.8-10.44); Carbon Dioxide 27 mmol/L (23-31); Chloride 95 mmol/L (98-107); Globulin 2.9 g/dL (2.4-3.5); Glucose 185 mg/dL (80-115); Magnesium 2.5 mg/dL (1.6-2.6); Potassium 3.8 mmol/L (3.5-5.1); Protein, Total 6.7 g/dL (5.8-8.1); Sodium 137 mmol/L (136-145)
[2021-08-25 05:11] LABS: BUN (Urea Nitrogen) 129 mg/dL (8.4-25.7)
[2021-08-25 05:22] LABS: #Basophils 0.1 10x3/uL (0.0-0.2); #Eosinphils 0.1 10x3/uL (0.0-0.5); #Monocytes 0.7 10x3/uL (0.0-1.1); #Neutrophils 7.9 10x3/uL (1.5-8.4); %Basophils 0.6 % (0.0-2.0); %Eosinophils 1.1 % (0.0-6.0); %Lymphocytes 12.8 % (18.0-47.0); %Monocytes 7.1 % (0.0-10.0); %Neutrophils 77.9 % (40.0-75.0); Hemoglobin 8.1 g/dL (13.5-17.5); Mean Corpuscular HGB CONC 30.8 g/dL (32.0-36.0); Mean Corpuscular Hemoglobin 25.2 pg (27.0-33.0); Mean Corpuscular Volume 81.9 fl (81.2-95.1); Platelet Count 354 10x3/uL (150-450); RBC Distribution Width 17.3 % (11.5-14.5); Red Blood Cell (RBC) Count 3.21 10x6/uL (4.32-5.72); White Blood Cell (WBC) Count 10.1 10x3/uL (3.5-10.5)
[2021-08-25] MEDS: Gabapentin 100 MG CAP PO SCH ×3 (09:46→22:47)
[2021-08-25] MEDS: Pantoprazole 40 MG VIAL IVP SCH ×2 (09:46→22:47)
[2021-08-25] MEDS: Allopurinol 100 MG TAB PO SCH (09:46)
[2021-08-25] MEDS: HumaLOG 300 UNITS/3 ML VIAL SC PRN (14:24)
[2021-08-25 16:36] LABS: Hep B Surf Ag Non-Reactive S/CO (NonReactive)
[2021-08-25 16:38] LABS: HBSAg Index 0.21 S/CO (0-0.99)
[2021-08-25] MEDS ORDERED: Warfarin Sodium 5 MG TAB PO SCH (17:00)
[2021-08-25] MEDS ORDERED: Lidocaine 1% w/Epinephrine 1:100K 30 ML VIAL FS SCH (17:00)
[2021-08-25] MEDS: Furosemide 100 MG/10 ML VIAL SLOW IVP SCH ×2 (17:53→18:34)
[2021-08-25] MEDS ORDERED: Furosemide 20 MG/2 ML VIAL SLOW IVP SCH (22:30)
[2021-08-25] MEDS ORDERED: Nitroglycerin 0.4 MG TAB (25 Tab Bottle) SL SCH (22:30)
[2021-08-25] MEDS: Atorvastatin Calcium 40 MG TAB PO SCH (22:47)
[2021-08-26] MEDS ORDERED: methylPREDNISolone Sod Succ/PF 125 MG/2 ML VIAL IVP SCH (00:15)
[2021-08-26 01:04] LABS: Anion Gap 20 mmol/L (10-20); BUN (Urea Nitrogen) 92 mg/dL (8.4-25.7); Calc. Creatinine Clearance 27 mL/min (70-130); Calcium 8.9 mg/dL (7.8-10.44); Carbon Dioxide 25 mmol/L (23-31); Chloride 98 mmol/L (98-107); Glucose 196 mg/dL (80-115); Potassium 4.2 mmol/L (3.5-5.1); Sodium 139 mmol/L (136-145)
[2021-08-26 01:15] LABS: CKMB 1.4 ng/mL (0-6.6)
[2021-08-26] MEDS ORDERED: Acetaminophen 325 MG TAB PO PRN (02:47)
[2021-08-26 04:58] LABS: #Monocytes 0.2 10x3/uL (0.0-1.1); #Neutrophils 9.8 10x3/uL (1.5-8.4); %Basophils 0.2 % (0.0-2.0); %Eosinophils 0.1 % (0.0-6.0); %Lymphocytes 6.5 % (18.0-47.0); %Monocytes 1.9 % (0.0-10.0); %Neutrophils 90.9 % (40.0-75.0); Hemoglobin 8.4 g/dL (13.5-17.5); Mean Corpuscular HGB CONC 30.9 g/dL (32.0-36.0); Mean Corpuscular Hemoglobin 25.3 pg (27.0-33.0); Mean Corpuscular Volume 81.9 fl (81.2-95.1); Mean Platelet Volume 11.2 fl (7.4-10.4); Platelet Count 262 10x3/uL (150-450); RBC Distribution Width 17.7 % (11.5-14.5); Red Blood Cell (RBC) Count 3.32 10x6/uL (4.32-5.72); White Blood Cell (WBC) Count 10.8 10x3/uL (3.5-10.5)
[2021-08-26 05:02] LABS: INR-International Normal Ratio 1.8; Prothrombin Time 19.2 sec (9.5-12.1)
[2021-08-26 05:06] LABS: ALT (SGPT) 14 U/L (8-55); AST (SGOT) 28 U/L (5-34); Albumin 4.1 g/dL (3.4-4.8); Alkaline Phosphatase 92 U/L (40-110); Anion Gap 19 mmol/L (10-20); BUN (Urea Nitrogen) 92 mg/dL (8.4-25.7); Bilirubin, Total 1.6 mg/dL (0.2-1.2); Calc. Creatinine Clearance 25 mL/min (70-130); Calcium 8.9 mg/dL (7.8-10.44); Carbon Dioxide 23 mmol/L (23-31); Chloride 97 mmol/L (98-107); Globulin 3.3 g/dL (2.4-3.5); Glucose 411 mg/dL (80-115); Potassium 4.3 mmol/L (3.5-5.1); Protein, Total 7.4 g/dL (5.8-8.1); Sodium 135 mmol/L (136-145)
[2021-08-26] MEDS ORDERED: Furosemide 100 MG/10 ML VIAL SLOW IVP SCH (05:15)
[2021-08-26 05:27] LABS: CKMB 1.6 ng/mL (0-6.6)
[2021-08-26] MEDS: HumaLOG 300 UNITS/3 ML VIAL SC PRN ×2 (06:51→13:44)
[2021-08-26] MEDS: Budesonide 0.5 MG/2 ML NEB NEB SCH ×2 (07:00→21:07)
[2021-08-26] MEDS: Pantoprazole 40 MG VIAL IVP SCH (10:29)
[2021-08-26] MEDS: Allopurinol 100 MG TAB PO SCH ×3 (10:30→16:33)
[2021-08-26] MEDS: Gabapentin 100 MG CAP PO SCH ×2 (10:30→15:42)
[2021-08-26 12:52] LABS: HBSAB Concentration Less than 8.00 mIU/mL; Hep B Core Total Ab Non-Reactive (NonReactive); Hep B Core Total Index 0.06 S/CO (0-0.79); Hep B Surf AB Non-Reactive (NonReactive); Hep C IgG Ab Non-Reactive (NonReactive); Hep C Index 0.09 S/CO (0-0.79)
[2021-08-26] MEDS: Enoxaparin Sodium 40 MG/0.4 ML SYRINGE SC SCH ×2 (13:43→13:51)
[2021-08-26 14:59] VITALS: TEMP 97.2
[2021-08-26] MEDS ORDERED: Warfarin Sodium 5 MG TAB PO SCH (17:00)
[2021-08-26 17:57] VITALS: BP 112/64
[2021-08-26] MEDS ORDERED: Enoxaparin Sodium 60 MG/0.6 ML SYRINGE SC SCH (21:00)
[2021-08-27] MEDS: Budesonide 0.5 MG/2 ML NEB NEB SCH (08:01)
[2021-08-27] MEDS ORDERED: Enoxaparin Sodium 100 MG/ML SYRINGE SC SCH (09:00)
== END 2021-08-26 17:58 | disposition hospice, home (50) | DRG 291 ==
LOC: CSHERS 01:48 → INTOOBSV 05:22 → CSHERHOLD 05:22 → CSHTELE 13:56 → OBSVTOIN 15:02
PROVIDERS: ADMIT Family Medicine; ATTEND Hospitalist
PROC: 30233N1 Transfusion of Nonautologous Red Blood Cells into Peripheral Vein, Percutaneous Approach (ICD-10-PCS; 2021-08-22)
PROC: 06HY33Z Insertion of Infusion Device into Lower Vein, Percutaneous Approach (ICD-10-PCS; principal; 2021-08-25)
PROC: 5A1D70Z Performance of Urinary Filtration, Intermittent, Less than 6 Hours Per Day (ICD-10-PCS; 2021-08-25)
DX: I13.2 Hypertensive heart and chronic kidney disease with heart failure and with stage 5 chronic kidney disease, or end stage renal disease (principal); I50.23 Acute on chronic systolic (congestive) heart failure; N18.6 End stage renal disease; D58.9 Hereditary hemolytic anemia, unspecified; N17.9 Acute kidney failure, unspecified; E87.1 Hypo-osmolality and hyponatremia; E87.2 Acidosis; D68.9 Coagulation defect, unspecified; Z20.822 Contact with and (suspected) exposure to COVID-19; J44.9 Chronic obstructive pulmonary disease, unspecified; I25.5 Ischemic cardiomyopathy; E11.42 Type 2 diabetes mellitus with diabetic polyneuropathy; E11.22 Type 2 diabetes mellitus with diabetic chronic kidney disease; I25.10 Atherosclerotic heart disease of native coronary artery without angina pectoris; I48.0 Paroxysmal atrial fibrillation; E78.5 Hyperlipidemia, unspecified; F17.210 Nicotine dependence, cigarettes, uncomplicated; Z79.4 Long term (current) use of insulin; Z95.2 Presence of prosthetic heart valve; Z79.01 Long term (current) use of anticoagulants; Z95.810 Presence of automatic (implantable) cardiac defibrillator; Z95.1 Presence of aortocoronary bypass graft; Z90.49 Acquired absence of other specified parts of digestive tract
CPT/HCPCS: 36415; 36416; 36430; 70450; 71045; 80053; 82550; 82553; 82607; 82668; 82728; 82746; 83540; 83550; 83735; 83880; 84443; 84484; 85025; 85610; 85730; 86704; 86706; 86803; 86850; 86900; 86901; 87340; 90935; 93005; 93010; 94640; 94760; C9113; G0257; J1650; J1815; J1940; J2916; J2930; J3490; J7620; J7626; P9016; U0002